=== PATIENT | male | born 1965 | race Caucasian/White ===

== ENCOUNTER → 2017-04-04 12:19 | Emergency (ER) | payer BC ==
[~2017-04-04 12:19] MED LIST: Iohexol 350* (CONTRAST) 500 ML MDV IV ONE
[2017-04-04 14:51] LABS: Hematocrit 48 % (42-52); Hemoglobin 15.7 g/dl (14.0-18.0); Mean Corpuscular HGB Conc 33 g/dl (31-36); Mean Corpuscular Hemoglobin 29 pg (27-31); Mean Corpuscular Volume 87 fL (80-94); Mean Platelet Volume 9 um3 (7.4-10.4); Red Blood Count 5.47 10^6/ul (4.0-5.4); Red Cell Distribution Width 15 % (10.5-15); White Blood Count 8.3 10^3/ul (3.5-10.8)
[2017-04-04 15:03] LABS: Albumin 3.8 g/dL (3.2-5.2); Calcium 9.4 mg/dL (8.6-10.3); EGFR African American 129.2 (>60); EGFR Non-African American 100.5 (>60); Potassium 3.9 mmol/L (3.5-5.0); Total Bilirubin 0.5 mg/dL (0.2-1.0); Total Protein 6.8 g/dL (6.4-8.9)
--- NOTE | 2017-04-04 15:59 | RAD ---
Indication: Right-sided chest pain. Contrast:Administered 77.3 ml of OMNIPAQUE 350 mg/ml. CTA of the chest was performed after IV contrast demonstration. Coronal and sagittal reconstructed images were obtained. The pulmonary arterial tree is well opacified. There is no evidence of any fixed suggest pulmonary Inferior thyroid lobes are more focal. There is no mediastinal or hilar adenopathy noted. The heart demonstrates no pericardial effusion. The trachea and major bronchi appear patent. Mild interstitial edema consistent with vascular congestion is noted. No alveolar consolidation is noted. IMPRESSION: NO EVIDENCE OF PULMONARY EMBOLUS IS NOTED. INTERSTITIAL EDEMA CONSISTENT WITH VASCULAR CONGESTION
[2017-04-04 16:38] VITALS: BP 119/91
--- NOTE | 2017-04-04 23:51 | ED ---
Tyra Landers Alfonso, scribed for Anjum Muniz MD on 04/04/17 at 1305 . HPI Chest Pain - HPI Summary HPI Summary: This patient is a 51 year old male presenting to [facility] c/o right sided CP since this morning. He reports the "discomforting" CP is secondary to exertion and deep breaths. The pain is rated 2/10 in severity. Symptoms aggravated by stress (last few days), exertion, and deep breaths and alleviated by nothing. He reports SOB. PMHx of Pulmonary Embolism (2007). - History of Current Complaint Chief Complaint: EDChestPainROMI Hx Obtained From: Patient Onset/Duration: Started Hours Ago - Morning, Still Present Timing: Constant Initial Severity: Mild Current Severity: Mild Pain Intensity: 2 Pain Scale Used: 0-10 Numeric Chest Pain Location: Discrete at: - Right sided Character: Other: - "discomforting" Aggravating Factor(s): Exertion, Deep Breaths, Other: - Stress (last few days) Alleviating Factor(s): Nothing Associated Signs and Symptoms: Positive: Shortness of Breath - Allergy/Home Medications Allergies/Adverse Reactions: Allergies Allergy/AdvReac Type Severity Reaction Status Date / Time Penicillins Allergy Unknown Verified 11/17/15 12:23 Reaction Details Home Medications: Home Medications Losartan TAB* [Cozaar TAB*] 100 mg PO DAILY 04/04/17 [History Confirmed 04/04/17 ] Warfarin TAB(*) [Coumadin TAB(*)] 1 mg PO DAILY 04/04/17 [History Confirmed ] Warfarin TAB(*) [Coumadin TAB(*)] 5 mg PO DAILY 04/04/17 [History Confirmed ] PMH/Surg Hx/FS Hx/Imm Hx Endocrine/Hematology History: Denies: Hx Diabetes Cardiovascular History: Reports: Hx Deep Vein Thrombosis, Hx Hypertension Denies: Hx Congestive Heart Failure, Hx Pacemaker/ICD Respiratory History: Denies: Hx Asthma History: Denies: Hx Renal Disease Sensory History: Denies: Hx Hearing Aid Psychiatric History: Denies: Hx Panic Disorder - Surgical History Surgery Procedure, Year, and Place: DEVIATED SEPTUM REPAIR,LITHOTRIPSY Infectious Disease History: No Infectious Disease History: Denies: Traveled Outside the [place] in Last 30 Days - Family History Known Family History: Positive: Unknown - Adopted - Social History Alcohol Use: Occasionally Substance Use Type: Reports: None Review of Systems Positive: Chest Pain - "discomforting" right sided CP secondary to exertion and deep breaths Positive: Shortness Of Breath All Other Systems Reviewed And Are Negative: Yes Physical Exam Triage Information Reviewed: Yes Vital Signs On Initial Exam: Initial Vitals Temp Pulse Resp BP Pulse Ox 97.7 F 64 18 122/67 97 04/04/17 12:28 04/04/17 12:28 04/04/17 12:28 04/04/17 12:28 04/04/17 12:28 Vital Signs Reviewed: Yes Appearance: Positive: Well-Appearing, No Pain Distress Skin: Positive: Warm, Skin Color Reflects Adequate Perfusion, Dry Head/Face: Positive: Normal Head/Face Inspection Eyes: Positive: Normal ENT: Positive: Normal ENT inspection Neck: Positive: Supple, Nontender Respiratory/Lung Sounds: Positive: Clear to Auscultation, Breath Sounds Present Cardiovascular: Positive: RRR Abdomen Description: Positive: Nontender, Soft Bowel Sounds: Positive: Present Musculoskeletal: Positive: Normal Neurological: Positive: Normal, Sensory/Motor Intact, Alert, Oriented to Person Place, Time, CN Intact II-III Psychiatric: Positive: Affect/Mood Appropriate Diagnostics - Vital Signs Vital Signs Temp Pulse Resp BP Pulse Ox 04/04/17 12:30 97.7 F 100 16 135/82 97 04/04/17 12:28 97.7 F 64 18 122/67 97 - Laboratory Lab Results: Lab Results 04/04/17 04/04/17 04/04/17 Range/Units 14:10 14:10 14:10 WBC 8.3 (3.5-10.8) 10^3/ul RBC 5.47 H (4.0-5.4) 10^6/ul Hgb 15.7 (14.0-18.0) g/dl Hct 48 (42-52) % MCV 87 (80-94) fL MCH 29 (27-31) pg MCHC 33 (31-36) g/dl RDW 15 (10.5-15) % Plt Count 198 (150-450) 10^3/ul MPV 9 (7.4-10.4) um3 Neut % (Auto) 64.4 (38-83) % Lymph % (Auto) 27.2 (25-47) % Jefferson % (Auto) 6.4 (1-9) % Eos % (Auto) 1.2 (0-6) % Baso % (Auto) 0.8 (0-2) % Absolute Neuts (auto) 5.4 (1.5-7.7) 10^3/ul Absolute Lymphs (auto) 2.3 (1.0-4.8) 10^3/ul Absolute Monos (auto) 0.5 (0-0.8) 10^3/ul Absolute Eos (auto) 0.1 (0-0.6) 10^3/ul Absolute Basos (auto) 0.1 (0-0.2) 10^3/ul Absolute Nucleated RBC 0.01 10^3/ul Nucleated RBC % 0.1 INR (Anticoag Therapy) 2.40 H (0.89-1.11) Sodium 137 (133-145) mmol/L Potassium 3.9 (3.5-5.0) mmol/L Chloride 104 (101-111) mmol/L Carbon Dioxide 28 (22-32) mmol/L Anion Gap 5 (2-11) mmol/L BUN 13 (6-24) mg/dL Creatinine 0.81 (0.67-1.17) mg/dL Est GFR ( Amer) 129.2 (>60) Est GFR (Non-Af Amer) 100.5 (>60) BUN/Creatinine Ratio 16.0 (8-20) Glucose 80 (70-100) mg/dL Lactic Acid (0.5-2.0) mmol/L Calcium 9.4 (8.6-10.3) mg/dL Total Bilirubin 0.50 (0.2-1.0) mg/dL AST 18 (13-39) U/L ALT 23 (7-52) U/L Alkaline Phosphatase 66 (34-104) U/L Troponin I 0.00 (<0.04) ng/mL Total Protein 6.8 (6.4-8.9) g/dL Albumin 3.8 (3.2-5.2) g/dL Globulin 3.0 (2-4) g/dL Albumin/Globulin Ratio 1.3 (1-3) // Range/Units 14:10 WBC (3.5-10.8) 10^3/ul RBC (4.0-5.4) 10^6/ul Hgb (14.0-18.0) g/dl Hct (42-52) % MCV (80-94) fL MCH (27-31) pg MCHC (31-36) g/dl RDW (10.5-15) % Plt Count (150-450) 10^3/ul MPV (7.4-10.4) um3 Neut % (Auto) (38-83) % Lymph % (Auto) (25-47) % Jefferson % (Auto) (1-9) % Eos % (Auto) (0-6) % Baso % (Auto) (0-2) % Absolute Neuts (auto) (1.5-7.7) 10^3/ul Absolute Lymphs (auto) (1.0-4.8) 10^3/ul Absolute Monos (auto) (0-0.8) 10^3/ul Absolute Eos (auto) (0-0.6) 10^3/ul Absolute Basos (auto) (0-0.2) 10^3/ul Absolute Nucleated RBC 10^3/ul Nucleated RBC % INR (Anticoag Therapy) (0.89-1.11) Sodium (133-145) mmol/L Potassium (3.5-5.0) mmol/L Chloride (101-111) mmol/L Carbon Dioxide (22-32) mmol/L Anion Gap (2-11) mmol/L BUN (6-24) mg/dL Creatinine (0.67-1.17) mg/dL Est GFR ( Amer) (>60) Est GFR (Non-Af Amer) (>60) BUN/Creatinine Ratio (8-20) Glucose (70-100) mg/dL Lactic Acid 1.1 (0.5-2.0) mmol/L Calcium (8.6-10.3) mg/dL Total Bilirubin (0.2-1.0) mg/dL AST (13-39) U/L ALT (7-52) U/L Alkaline Phosphatase (34-104) U/L Troponin I (<0.04) ng/mL Total Protein (6.4-8.9) g/dL Albumin (3.2-5.2) g/dL Globulin (2-4) g/dL Albumin/Globulin Ratio (1-3) Result Diagrams: 04/04/17 14:10 04/04/17 14:10 Lab Statement: Any lab studies that have been ordered have been reviewed, and results considered in the medical decision making process. - CT Chest/Thorax CTA CT Interpretation: Positive (See Comments) - NO EVIDENCE OF PULMONARY EMBOLUS IS NOTED. INTERSTITIAL EDEMA CONSISTENT WITH VASCULAR CONGESTION CT Interpretation Completed By: Radiologist - EKG 1227 Cardiac Rate: NL - BPM 84 EKG Rhythm: Sinus Rhythm Chest Pain Course/Dx - Course Course Of Treatment: Mr. 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 He has no pain now but can reproduce it lying in the bed by taking a big inspiration. He was worried about PE as he is protein C deficient. His CTA was negative. - Diagnoses Provider Diagnoses: Chest wall pain Discharge - Discharge Plan Condition: Stable Disposition: HOME Patient Education Materials: Chest Wall Pain (ED) Referrals: Andie Riojas MD [Primary Care Provider] - 3 Days Additional Instructions: Follow up with primary care provider. The documentation as recorded by the Tyra rendon Alfonso accurately reflects the service I personally performed and the decisions made by me, Anjum Muniz MD.
== END | disposition home or self-care (01) ==
LOC: ED 12:19
DX: R07.89 Other chest pain (principal); R06.02 Shortness of breath
CPT/HCPCS: 36415; 71275; 80053; 83605; 84484; 85025; 85610; 93005; 99282; Q9967

== ENCOUNTER 2019-10-01 12:10 | Day surgery (SDC) | payer BC ==
[~2019-10-01 12:10] MED LIST changes: +Buffered Lidocaine 1% SYRIN* 1 ML/SYRINGE INTRADERM ONE; -Iohexol 350* (CONTRAST) 500 ML MDV IV ONE; +Lactated Ringers 1000 ML Bag* 1,000 ML IV SCH
[2019-10-01] MEDS ORDERED: Oxymetazoline 0.05% NASAL SPR* 15 ML BTL ONE (15:34)
[2019-10-01] MEDS ORDERED: Lidocaine 2% w/ EPI 1:200,000* 20 ML SDV VIAL ONE (15:34)
[2019-10-01] MEDS ORDERED: Midazolam* 1 MG/ML 2 ML VIAL (2 MG) ONE (15:42)
[2019-10-01] MEDS ORDERED: Lidocaine 2% PF * 5 ML VIAL ONE (15:42)
[2019-10-01] MEDS ORDERED: Propofol* 10 MG/ML 20 ML BTL ONE (15:42)
[2019-10-01] MEDS ORDERED: fentaNYL* 50 MCG/ML 2 ML VIAL (100 MCG VIAL) ONE (15:57)
[2019-10-01] MEDS ORDERED: Metoclopramide IV* 5 MG/ML 2 ML VIAL ONE (16:05)
[2019-10-01] MEDS ORDERED: Ondansetron INJ* 2 MG/ML VIAL ONE (16:05)
[2019-10-01] MEDS ORDERED: Dexamethasone IV* 4 MG/ML 1 ML (4 MG) ONE (16:05)
[2019-10-01] MEDS ORDERED: oxyCODONE TAB* 5 MG TAB PO PRN (16:19)
[2019-10-01] MEDS ORDERED: fentaNYL* 50 MCG/ML 2 ML VIAL (100 MCG VIAL) IV PRN (16:19)
[2019-10-01] MEDS ORDERED: DiMENhydriNATE IV* 50 MG/ML VIAL IV PUSH PRN (16:19)
[2019-10-01] MEDS ORDERED: Naloxone* 0.4 MG/ML 1 ML VIAL IV PRN (16:19)
[2019-10-01] MEDS ORDERED: Acetaminophen TAB* 325 MG PO PRN (16:19)
[2019-10-01] MEDS ORDERED: Labetalol IV* 5 MG/ML 20 ML VIAL ONE (18:08)
[2019-10-01 19:40] VITALS: BP 142/82
--- NOTE | 2019-10-02 00:44 | OP ---
DATE OF OPERATION: 10/01/19 - SDS DATE OF : 65 SURGEON: Zoltan Cespedes MD PRE-OP DIAGNOSES: Nasal dyspnea, deviated nasal septum, hypertrophied turbinates and nasal synechia. POST-OP DIAGNOSES: Nasal dyspnea, deviated nasal septum, hypertrophied turbinates and nasal synechia. OPERATIVE PROCEDURE: Septoplasty and submucosal resection of inferior turbinates. BRIEF HISTORY: This 54-year-old gentleman with previous history of nasal injury , epistaxis control had caused synechia and deviation of the nasal septum with a deviation between the turbinate and the lateral nasal wall. DESCRIPTION OF PROCEDURE: The patient was brought to the operating room. The patient was intubated with LMA. Nose was decongested with Afrin-placed pledgets. 2% lidocaine with epinephrine was infiltrated into the mucosa on both sides. Large synechia between the inferior turbinate and the septal wall was identified and lysed away with a #15 blade. This released the septum. Small incision was made in the septal mucosa, submucosal elevation was carried out. Portion of the septal cartilage was then resected along the maxillary crest. This allowed the cartilage to swing freely and return to the midline. Once this was done, it was secured in place with magnetic splints. Then, we turned our attention to the inferior nasal turbinates, resecting some of the inferior turbinate mucosa and bone to allow more space between the septum and the lateral wall. Once this was done on both sides, the submucosal tissue was cauterized to enhance hemostasis. The patient was then awakened and sent to recovery room in stable condition. Instrument and sponge count was correct. Blood loss was minimal. [id number]/[facility] #: [id number] [facility]
== END 2019-10-01 19:00 | disposition home or self-care (01) ==
LOC: OR 12:10
PROVIDERS: ATTEND Otolaryngology
DX: J34.2 Deviated nasal septum (principal); M95.0 Acquired deformity of nose; J34.3 Hypertrophy of nasal turbinates; D68.59 Other primary thrombophilia; I10 Essential (primary) hypertension; K21.9 Gastro-esophageal reflux disease without esophagitis; Z79.01 Long term (current) use of anticoagulants
CPT/HCPCS: A9270-GY; J1100; J2250; J2405; J2704; J2765; J3010